=== PATIENT | male | born 1945 | race Hispanic/Latino ===

== ENCOUNTER 2020-05-20 05:55 | Day surgery (SDC) | payer MEDICARE, OTHER ==
[2020-05-20] MEDS ORDERED: fentaNYL 100 MCG/2 ML INJ ONE (06:52)
[2020-05-20] MEDS ORDERED: HEPARIN/NS 5000 UNIT/500ML 1,000 ML IR ONE (06:52)
[2020-05-20] MEDS ORDERED: MIDAZOLAM 2 MG/2 ML INJ ONE (06:52)
[2020-05-20] MEDS ORDERED: LIDOCAINE (2%) 20 MG/1 ML VIAL 20 ML MDV INFILTRATI ONE (06:53)
[2020-05-20 06:58] LABS: Basophils # (Auto) 0.1 K/mm3 (0.0-0.1); Eosinophils # (Auto) 0.1 K/mm3 (0.0-0.4); Eosinophils % (Auto) 1.7 % (0.0-4.3); Hematocrit 37.8 % (35.5-45.6); Hemoglobin 12.6 gm/dl (11.8-15.2); Lymphocytes # (Auto) 2.1 K/mm3 (1.2-5.4); Lymphocytes % (Auto) 24.7 % (13.4-35.0); Mean Corpuscular HGB Conc 33 % (32-34); Mean Corpuscular Volume 89 fl (84-94); Monocytes # (Auto) 0.7 K/mm3 (0.0-0.8); Monocytes % (Auto) 8.4 % (0.0-7.3); Platelet Count 258 K/mm3 (140-440); Red Blood Count 4.24 M/mm3 (3.65-5.03); Red Cell Distribution Width 14.1 % (13.2-15.2)
[2020-05-20] MEDS ORDERED: SODIUM CHLORIDE 0.9% 500 ML 500 ML IV SCH (07:00)
[2020-05-20 07:09] LABS: Calcium 9.5 mg/dL (8.4-10.2); Partial Thromboplastin Time 30.5 Sec. (24.2-36.6)
[2020-05-20] MEDS ORDERED: ASPIRIN EC 325 MG TAB PO SCH (07:30)
[2020-05-20] MEDS: HEPARIN 10,000 UNITS/10 ML VIAL ONE ×3 (07:53→07:58)
[2020-05-20] MEDS: NITROGLYCERIN SYRINGE 3 ML ONE ×3 (07:53→07:58)
[2020-05-20] MEDS: VERAPAMIL 5 MG/2 ML INJ ONE ×3 (07:54→07:58)
[2020-05-20] MEDS ORDERED: HYDROcodone/ACETAMINOPHEN 5-325 MG TAB PO PRN (08:24)
[2020-05-20] MEDS ORDERED: traMADol 50 MG TAB PO PRN (08:24)
[2020-05-20 10:21] VITALS: BP 139/67
--- NOTE | 2020-05-22 09:59 | Cardiac Catherization Report ---
LEFT HEART CARDIAC CATHETERIZATION REPORT INDICATION: Abnormal thallium indicating circumflex ischemia. DESCRIPTION OF PROCEDURE: The procedure was performed through the right radial artery. Standard access using a 5-Lao femoral sheath. A TIG catheter was used to engage the coronaries. There was tortuosity in the subclavian, which prevented the performance of a left ventriculogram. Due to his chronic kidney disease, we also wanted to limit the amount of contrast used. The total contrast used was 60 mL of contrast dye. Sedation started at 7:52 and ended at 8:14. This was a total of 22 minutes of conscious sedation monitoring. A TR band was used for hemostasis at the conclusion of the procedure. There was minimal blood loss. The patient left the catheterization table in stable condition. HEMODYNAMICS: Aortic pressure 128/74. The left ventriculogram was not performed due to chronic kidney disease and tortuosity through the subclavian, which made it difficult to pass the catheter through the left ventriculogram. CORONARY ANATOMY: FINDINGS: 1. Left main: The left main is a large long vessel. It is calcified and bifurcates into the left anterior descending and circumflex arteries. The distal left main has severe napkin ring lesion of 90%. 2. Left anterior descending. The left anterior descending is a large artery and has severe calcification throughout its course. In the proximal segment, there was mild calcification. It gives off 2 diagonals. The first diagonal has severe 80-90% stenosis. The mid section of the LAD has 50% stenosis. The distal LAD has a 70-80% stenosis. 3. Circumflex: The circumflex appears to be small and supplied by collaterals from the right. It is subtotally occluded in its ostial segment. The subtotal occlusion is 90-99%. 4. Right coronary artery: The right coronary artery is large and dominant. It has diffuse calcification and disease. The proximal and mid segments have 50% stenoses. The distal right coronary supplies collaterals to the circumflex. There is a branch of the posterior descending artery that has 70-80% disease. FINAL CONCLUSION: Severe coronary artery disease involving distal left main with napkin ring lesion and multivessel disease involving the left anterior descending, circumflex and right coronary artery. RECOMMENDATIONS: The patient will be referred to [facility] for coronary artery bypass grafting evaluation. Further recommendations will follow after his evaluation is complete. JOB# [id number] GP/NTS
== END 2020-05-20 11:15 | disposition critical access hospital (66) ==
LOC: CATHLABREC 05:55
PROVIDERS: ATTEND Internal Medicine Cardiovascular Disease
DX: R94.39 Abnormal result of other cardiovascular function study (principal); I25.10 Atherosclerotic heart disease of native coronary artery without angina pectoris; I12.9 Hypertensive chronic kidney disease with stage 1 through stage 4 chronic kidney disease, or unspecified chronic kidney disease; E11.22 Type 2 diabetes mellitus with diabetic chronic kidney disease; N18.9 Chronic kidney disease, unspecified; K21.9 Gastro-esophageal reflux disease without esophagitis; M19.90 Unspecified osteoarthritis, unspecified site; E03.9 Hypothyroidism, unspecified; E78.00 Pure hypercholesterolemia, unspecified; Z98.890 Other specified postprocedural states; Z79.899 Other long term (current) drug therapy; Z79.84 Long term (current) use of oral hypoglycemic drugs; Z98.41 Cataract extraction status, right eye; Z87.440 Personal history of urinary (tract) infections; Z85.828 Personal history of other malignant neoplasm of skin
CPT/HCPCS: 36415; 80048; 82962; 85025; 85610; 85730; 93005; 93454; 99156; C1769; C1887; C1894; J1644; J2250; J3010; J7040; Q9967